=== PATIENT | male | born 2000 | race Caucasian/White ===

== ENCOUNTER 2020-10-31 15:44 | Emergency (ER) | payer OTHER ==
[~2020-10-31] VITALS: Ht 188 cm; Wt 75.0 kg
[2020-10-31 16:20] VITALS: BP 118/61
--- NOTE | 2020-10-31 16:58 | PHYS DOC ---
General Adult EDM: Chief Complaint: CHEST PAIN HPI: HPI: Patient is a 20-year-old male coming in for palpitations and what he says feels like irregular heartbeat since yesterday. Patient denies chest pain but says he feels like his chest is "tight" what is going on. She has had episodes in the past that resolved quickly and only lasted a few seconds. Patient states that since yesterday he is having episodes that over 1 to 2 hours he will experience irregular heartbeat for about 30 seconds. Patient stated that yesterday he thought it might be due to drinking a Coke and has not drink any alcohol or caffeine today. Patient denies any new medications or krhe-kgc-[id number] medications or supplements. Patient states he has a family history significant for father who had similar palpitations when he was 17. Denies any tobacco, alcohol, drug use. Denies any chest pain, lower extremity edema, nausea, vomiting, diarrhea, patient has a normal p.o. intake, no recent weight loss or gain. (MITCHELL BAILEY MD) Review of Systems: Review of Systems: All other systems within normal limits except for as noted in the HPI (MITCHELL BAILEY MD) Allergies: Allergies: Allergies Coded Allergies Type Severity Reaction Last Updated Verified azithromycin Allergy Unknown 10/31/20 Yes (MITCHELL BAILEY MD) Physical Exam: PE: Constitutional: Well developed, well nourished, no acute distress, non-toxic appearance. [] HENT: Normocephalic, atraumatic, bilateral external ears normal, oropharynx moist, no oral exudates, nose normal. [] Eyes: PERRLA, EOMI, conjunctiva normal, no discharge. [] Neck: Normal range of motion, no tenderness, supple, no stridor. [] Cardiovascular:Heart rate regular rhythm, no murmur [] Lungs & Thorax: Bilateral breath sounds clear to auscultation [] Abdomen: Bowel sounds normal, soft, no tenderness, no masses, no pulsatile masses. [] Skin: Warm, dry, no erythema, no rash. [] Back: No tenderness, no CVA tenderness. [] Extremities: No tenderness, no cyanosis, no clubbing, ROM intact, no edema. [] Neurologic: Alert and oriented X 3, normal motor function, normal sensory function, no focal deficits noted. [] Psychologic: Affect normal, judgement normal, mood normal. [] (MITCHELL BAILEY MD) EKG: EKG: Normal sinus rhythm, heart rate 77 bpm, normal axis, no ST elevation or depression, no ectopy, normal intervals. [] (MITCHELL BAILEY MD) Radiology/Procedures: Radiology/Procedures: Study: XR CHEST 2V Indication: Palpitations. Comparison: None. Findings: The cardiomediastinal silhouette and rito are within normal limits. No localized airspace opacity, pleural effusion or pneumothorax. Impression: No acute radiographic abnormality of the chest. [] (MITCHELL BAILEY MD) Heart Score: C/O Chest Pain: No Risk Factors: Risk Factors: DM, Current or recent (<one month) smoker, HTN, HLP, family history of CAD, obesity. Risk Scores: Score 0 - 3: 2.5% MACE over next 6 weeks - Discharge Home Score 4 - 6: 20.3% MACE over next 6 weeks - Admit for Clinical Observation Score 7 - 10: 72.7% MACE over next 6 weeks - Early Invasive Strategies (MITCHELL BAILEY MD) Course & Med Decision Making: Course & Med Decision Making Work-up unremarkable. Patient is in normal sinus rhythm without palpitations on monitor during ED stay. Pending TSH which will not be back for couple of days. Discussed with patient that we will follow up his TSH and let him know if it is normal. Pending at shift change, care transition to Dr. Castro. [] (MITCHELL BAILEY MD) Course & Med Decision Making Patient was handed to me at checkout from day team. Patient work-up unremarka ble. Patient asymptomatic in the ED. On reassessment patient alert, oriented cooperative and pleasant stating he is ready to go home. Advised to follow-up with primary care first thing Tuesday to set up a follow-up appointment. Gave strict return precautions to the ED. Family grateful, verbalized understanding and agreed with plan of discharge. (FRAN JONES MD) Dragon Disclaimer: Dragon Disclaimer: This electronic medical record was generated, in whole or in part, using a voice recognition dictation system. (MITCHELL BAILEY MD) Departure Departure: Impression: Primary Impression: Palpitations Disposition: 01 DC HOME SELF CARE/HOMELESS Condition: STABLE Referrals: PCP,UNKNOWN (PCP) [facility] Patient Instructions: Palpitations MITCHELL BAILEY MD Oct 31, 2020 16:58 FRAN JONES MD Oct 31, 2020 23:29
--- NOTE | 2020-10-31 17:00 | EKG ---
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
--- NOTE | 2020-10-31 17:04 | RAD ---
Study: XR CHEST 2V Indication: Palpitations. Comparison: None. Findings: The cardiomediastinal silhouette and rito are within normal limits. No localized airspace opacity, pl eural effusion or pneumothorax. Impression: No acute radiographic abnormality of the chest. Electronically signed by: ADRIANO TAVARES MD (10/31/2020 5:01 PM) [facility]
[2020-10-31 17:13] LABS: BASO % 1 % (0-3); CALCIUM 8.7 mg/dL (8.5-10.1); CREATININE 0.9 mg/dL (0.7-1.3); EOS # 0.1 x10^3/uL (0.0-0.7); EOS % 1 % (0-3); GFR 105.5; HEMOGLOBIN 13.8 g/dL (13.0-17.5); LYMPH # 1.5 x10^3/uL (1.0-4.8); LYMPH % 26 % (24-48); MEAN CORPUSCULAR HEMOGLOBIN 29 pg (25-35); MEAN CORPUSCULAR HGB CONC 34 g/dL (31-37); MEAN CORPUSCULAR VOLUME 86 fL (79-100); MONO # 0.4 x10^3/uL (0.0-1.1); MONO % 7 % (0-9); NEUT # 3.7 x10^3uL (1.8-7.7); NEUT % 65 % (31-73); PLATELET COUNT 213 x10^3/uL (140-400); POTASSIUM 3.8 mmol/L (3.5-5.1); RED BLOOD COUNT 4.79 x10^6/uL (4.30-5.70); RED CELL DISTRIBUTION WIDTH 13.3 % (11.5-14.5); WHITE BLOOD COUNT 5.6 x10^3/uL (4.0-11.0)
[2020-10-31 17:26] LABS: ALBUMIN 4.1 g/dL (3.4-5.0); ALBUMIN/GLOBULIN RATIO 1.1 (1.0-1.7); MAGNESIUM 2.2 mg/dL (1.8-2.4); PHOSPHORUS 4.1 mg/dL (2.6-4.7); TOTAL BILIRUBIN 0.6 mg/dL (0.2-1.0)
[2020-10-31 18:28] LABS: BARBITURATES NEG (NEG); BENZODIAZEPINES NEG (NEG); CANNABINOIDS NEG (NEG); COCAINE NEG (NEG); METHADONE NEG (NEG); OPIATES NEG (NEG); PHENCYCLIDINE NEG (NEG)
[2020-10-31 18:29] LABS: AMPHETAMINE/METHAMPHETAMINE NEG (NEG)
[2020-10-31 18:43] LABS: BACTERIA,URINE 0 /HPF (0-FEW); BILIRUBIN,URINE NEG (NEG); CLARITY,URINE HAZY; COLOR,URINE YELLOW; GLUCOSE,URINE NEG (NEG); NITRITE,URINE NEG (NEG); SQUAMOUS EPITHELIAL CELL,UR FEW /LPF; WBC,URINE OCC /HPF (0-4)
== END 2020-10-31 18:55 | disposition home or self-care (01) ==
LOC: ER 15:44
DX: R00.2 Palpitations (principal); Z88.1 Allergy status to other antibiotic agents
CPT/HCPCS: 36415; 71046; 80053; 80307; 81001; 83605; 83735; 83880; 84100; 84443; 84484; 85025; 85379; 93005; 99285; G0480

== ENCOUNTER 2020-11-05 15:27 | Emergency (ER) | payer OTHER ==
[~2020-11-05] VITALS: Ht 185.4 cm; Wt 78.3 kg
[2020-11-05 15:38] VITALS: BP 118/64
--- NOTE | 2020-11-05 15:47 | PHYS DOC ---
Past History Past Medical History: No Pertinent History Past Surgical History: No Surgical History Smoking: Non-smoker Alcohol Use: None Drug Use: None General Adult EDM: Chief Complaint: CHEST WALL PAIN HPI: HPI: 20-year-old male presents with report of chest discomfort/palpitations that have been ongoing for the past week. Patient reports was seen last Tuesday in the emergency department with laboratory data obtained as well as a chest x-ray. Patient was deemed safe for discharge home. Patient reports he is continued to have some of the symptoms which are worse when he focuses on them. Patient reports sensation that he is "skipping a beat ". Patient reports some increased anxiety. Reports history of issues with anxiety in the past. Denies leg swelling or calf tenderness. Denies history of PE/DVT. Denies cardiac risk factors for CAD. Prior [facility] visit reviewed from last Tuesday with notation of normal TSH, negative troponin, negative D-dimer, and chest x-ray without acute process. Review of Systems: Review of Systems: Constitutional: Denies fever or chills Eyes: Denies redness or eye pain HENT: Denies nasal congestion or sore throat Respiratory: Denies cough or shortness of breath Cardiovascular: Reports atypical chest pain and palpitations GI: Denies abdominal pain, nausea, or vomiting : Denies dysuria or hematuria Musculoskeletal: Denies back pain or joint pain Integument: Denies rash or skin lesions Neurologic: Denies headache, focal weakness or sensory changes Complete systems were reviewed and found to be within normal limits, except as documented in this note. Allergies: Allergies: Allergies Coded Allergies Type Severity Reaction Last Updated Verified azithromycin Allergy Unknown 10/31/20 Yes Physical Exam: PE: Constitutional: Well developed, well nourished, anxious, non-toxic appearance HENT: Normocephalic, atraumatic Eyes: Conjunctiva normal, no discharge Neck: Normal range of motion, supple Lungs & Thorax: No respiratory distress, equal chest rise and fall Abdomen: Soft, no tenderness Skin: Warm, dry, no erythema, no rash Extremities: No tenderness, ROM intact, no edema Neurologic: Alert and oriented X 3, normal motor function, normal sensory functi on, no focal deficits noted Psychologic: Affect anxious, judgment normal Current Patient Data: Vital Signs: Vital Signs Date Time Temp Pulse Resp B/P (MAP) Pulse Ox O2 Delivery O2 Flow Rate FiO2 11/05/20 15:38 97.5 62 16 118/64 (82) 100 Room Air EKG: EKG: @1537 NSR at 77bpm, NO ST elevation, QRS 94ms, QT/QTc 360/409ms, t wave inversion III, j point elevation V2 Radiology/Procedures: Radiology/Procedures: [] Heart Score: C/O Chest Pain: Yes HEART Score for Chest Pain: HEART Score for Chest Pain Response (Comments) Value History Slighlty/Non-Suspicious 0 ECG Normal 0 Age < 45 0 Risk Factors No Risk Factors 0 Total 0 Risk Factors: Risk Factors: DM, Current or recent (<one month) smoker, HTN, HLP, family history of CAD, obesity. Risk Scores: Score 0 - 3: 2.5% MACE over next 6 weeks - Discharge Home Score 4 - 6: 20.3% MACE over next 6 weeks - Admit for Clinical Observation Score 7 - 10: 72.7% MACE over next 6 weeks - Early Invasive Strategies Course & Med Decision Making: Course & Med Decision Making Patient presents with atypical chest pain/palpitations. A thorough examination was performed in emergency department last Tuesday. That visit and data were reviewed. Patient with negative D-dimer and troponin. EKG stable. Chest x-ray without acute process. TSH also within normal limits. EKG today without acute finding. Given recent laboratory work-up, no further laboratory data required. Patient very low risk for CAD. PERC negative. Symptoms more likely secondary to anxiety. Prescription for Ativan provided. Patient stable for discharge with outpatient follow-up with PCP. Given possible need for Holter monitor, cardiology consult was also provided for outpatient follow-up. Discussed findings and plan with patient, who acknowledges understanding and agreement. Rosalioon Disclaimer: Red Disclaimer: This electronic medical record was generated, in whole or in part, using a voice recognition dictation system. Departure Departure: Impression: Primary Impression: Atypical chest pain Additional Impression: Anxiety Disposition: 01 DC HOME SELF CARE/HOMELESS Condition: STABLE Referrals: PCP,UNKNOWN (PCP) KIM GR MD Patient Instructions: Anxiety and Panic Attacks, [id number], Chest Pain (Nonspecific), Mxfy-sd-[id number], Palpitations, Jylw-[id number]-[id number] Scripts Lorazepam (ATIVAN ) 0.5 Mg Tablet 0.5 MG PO PRN TID PRN for ANXIETY, #10 TAB Prov: JODI RODRIGUEZ DO 11/05/20 PERC Rule for PE PERC Rule for PE Response (Comments) Value Age > 50: No 0 HR > 100: No 0 Sa02 on room air <95%: No 0 Unilateral leg swelling: No 0 Hemoptysis: No 0 Recent surgery or trauma: No 0 Prior PE or DVT: No 0 Hormone use: No 0 Total 0 RODRIGUEZJODI CRUZ DO Nov 05, 2020 15:47
[2020-11-05] MEDS ORDERED: LORA0.5T21 PO (15:57)
--- NOTE | 2020-11-05 17:41 | EKG ---
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
== END 2020-11-05 16:05 | disposition home or self-care (01) ==
LOC: ER 15:27
DX: R07.89 Other chest pain (principal); F41.8 Other specified anxiety disorders; R00.2 Palpitations; Z88.1 Allergy status to other antibiotic agents
CPT/HCPCS: 93005; 99283